=== PATIENT | male | born 1980 | race Caucasian/White ===

== ENCOUNTER 2018-12-19 22:13 | Inpatient (IN) ==
[2018-12-19] MEDS ORDERED: DIPHTHERIA/TETANUS/PERTUSSIS 0.5 ML SYR/VIAL IM ONE (22:42)
[2018-12-19] MEDS ORDERED: AMPICILLIN/SULBACTAM SOD 3,000 MG in 0.9 % SODIUM CHLORIDE 100 ML IV STA (22:42)
[2018-12-19] MEDS ORDERED: SODIUM CHLORIDE 0.9% 1000ML 1,000 ML IV SCH (22:45)
[2018-12-19] MEDS ORDERED: ONDANSETRON INJ 2 MG/ML 2 ML VIAL IV STA (22:50)
[2018-12-19] MEDS ORDERED: MoRPHine SULFATE 4 MG/ML 1 ML CARP\\VIAL IV STA (22:50)
[2018-12-19 23:04] LABS: Basophils # (auto) 0.04 K/uL (0-0.2); Basophils % (auto) 0.3 %; Eosinophils # (auto) 0.08 K/uL (0-0.5); Eosinophils % (auto) 0.6 %; Hematocrit (blood only) 42.1 % (42-52); Hemoglobin 14.6 g/dL (14.0-18.0); Immature Granulocytes # (auto) 0.05 K/uL (0.00-0.02); Immature Granulocytes % (auto) 0.4 %; Lymphocytes # (auto) 2.45 K/uL (1.2-3.4); Lymphocytes % (auto) 19.1 %; Mean Corpuscular Hgb Conc 34.7 g/dL (32-36); Mean Corpuscular Volume 90.7 fL (80-100); Mean Platelet Volume 9.9 fL (7.4-10.4); Monocytes # (auto) 0.85 K/uL (0.11-0.59); Monocytes % (auto) 6.6 %; Neutrophils # (auto) 9.36 K/uL (1.4-6.5); Platelet Count 283 K/uL (130-400); RDW Coefficient of Variation 13.9 % (11.5-14.5); RDW Standard Deviation 45.8 fL (36.4-46.3); Red Blood Count 4.64 M/uL (4.7-6.1); White Blood Count 12.83 K/uL (4.8-10.8)
[2018-12-19 23:08] LABS: iSTAT Creatinine 1.4 mg/dl (0.6-1.3); iSTAT Hemoglobin 14.3 g/dl (14.0-18.0); iSTAT Ionized Calcium 1.05 mmol/l (1.12-1.32); iSTAT Potassium 3.7 mEq/L (3.3-5.0)
[2018-12-19] MEDS ORDERED: IOVERSOL 100ml IV PRN (23:12)
[2018-12-19 23:24] LABS: Alanine Aminotransferase 34 U/L (12-78); Albumin Level 3.8 gm/dl (3.4-5.0); Aspartate Aminotransferase 25 U/L (15-37); BUN Creatinine Ratio 11.2 (10-20); Blood Urea Nitrogen 14 mg/dl (7-18); Calcium 8.3 mg/dl (8.5-10.1); Carbon Dioxide 23 mmol/L (21-32); Chloride 109 mmol/L (98-107); Creatinine Clr Calc Pharmacy 100.9 ml/min; Est GFR (African American) 81.5; Est GFR (Non-African American) 70.4; Glucose 138 mg/dl (70-99); Potassium 3.6 mmol/L (3.5-5.1); Sodium 143 mmol/L (136-145)
[2018-12-19 23:29] LABS: Alkaline Phosphatase 93 U/L (45-117); Bilirubin,Total 0.3 mg/dl (0.2-1); Total Protein 7.8 gm/dl (6.4-8.2); Troponin I < 0.015 ng/ml (0-0.045)
[2018-12-20] MEDS ORDERED: LIDOCAINE/EPINEPH/TETRACAINE 1 EA SYR EXT STA (00:19)
[2018-12-20] MEDS ORDERED: LORazepam 1 MG/2 ML VIAL IV STA ×2 (00:19→01:28)
[2018-12-20] MEDS ORDERED: MoRPHine SULFATE 10 MG/ML CARP/VIAL IV STA (03:56)
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
[2018-12-20] MEDS ORDERED: AMPICILLIN/SULBACTAM SOD 3,000 MG in 0.9 % SODIUM CHLORIDE 100 ML IV STA (05:17)
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
[2018-12-20] MEDS ORDERED: MoRPHine SULFATE 4 MG/ML 1 ML CARP\\VIAL IV STA (06:46)
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
[2018-12-20] MEDS ORDERED: NEOSTIGMINE METHYLSULFATE 5 MG/5 ML SYR ONE (08:17)
[2018-12-20] MEDS ORDERED: DEXAMETHASONE SOD INJ 4 MG/ML VIAL ONE (08:17)
[2018-12-20] MEDS ORDERED: ONDANSETRON INJ 2 MG/ML 2 ML VIAL ONE (08:17)
[2018-12-20] MEDS ORDERED: GLYCOPYRROLATE 0.2 MG/ML VIAL ONE (08:17)
[2018-12-20] MEDS ORDERED: PROPOFOL IV EMULSION 10 MG/ML 20 ML VIAL IV ONE (08:17)
[2018-12-20] MEDS ORDERED: LIDOCAINE HCL 2% 2 ML VIAL/AMP(20MG/ML) INFIL ONE (08:17)
[2018-12-20] MEDS ORDERED: fentaNYL citrate 100 MCG/2 ML VIAL ONE ×4 (08:18→11:41)
[2018-12-20] MEDS ORDERED: MIDAZOLAM HCL 1 MG/ML 2ML VIAL ONE (08:18)
[2018-12-20] MEDS ORDERED: BUPIVACAINE/EPINEPHRINE 0.5% 1:200,000 1.8 ML CARP ONE (08:27)
[2018-12-20] MEDS ORDERED: CHLORHEXIDINE GLUCONATE 0.12% 480 ML ONE (08:27)
[2018-12-20] MEDS ORDERED: BUPIVACAINE/EPINEPHRINE 0.5% MPF 1:200,000 30 ML VIAL ONE (08:43)
[2018-12-20] MEDS ORDERED: BACITRACIN OINT 15 GM TUBE ONE (09:12)
[2018-12-20] MEDS ORDERED: BACITRACIN INJ 50,000 UNIT VIAL ONE (09:13)
[2018-12-20] MEDS ORDERED: STERILE IRRIGATING OPTH SOLUTION (BSS) 15ML ONE (09:34)
[2018-12-20] MEDS ORDERED: ePHEDrine sulfate 50 MG/ML AMP IV PRN (10:55)
[2018-12-20] MEDS ORDERED: METOCLOPRAMIDE HCL INJ 5 MG/ML 2 ML VIAL IV PRN (10:55)
[2018-12-20] MEDS ORDERED: HYDROmorphone INJ 2 MG/ML SYR/VIAL IV PRN (10:55)
[2018-12-20] MEDS ORDERED: fentaNYL citrate 100 MCG/2 ML VIAL IV PRN (10:55)
[2018-12-20] MEDS ORDERED: ONDANSETRON INJ 2 MG/ML 2 ML VIAL IV PRN ×2 (10:55→12:03)
[2018-12-20] MEDS ORDERED: PROMETHAZINE HCL 12.5 MG in SODIUM CHLORIDE 0.9% 50 ML IV PRN (10:55)
[2018-12-20] MEDS ORDERED: ATROPINE SULFATE 0.1 MG/ML 10ML SYR IV PRN (10:55)
[2018-12-20] MEDS ORDERED: DEXAMETHASONE SOD INJ 4 MG/ML VIAL IV PRN (10:55)
--- NOTE | 2018-12-20 10:59 | Anesthesiology Consultation ---
Date of Service December 20, 2018 Assessment & Plan Chart Review Chart Review: Acceptable Risk for Surgery Consults Requested none History Surgery Operation Date: 12/20/18 10:30 Proposed Procedures p Suturing Facial Lacerations - Min Ovalles DMD Height/Weight Height: 6 ft 1 in Weight: 107.7 kg Allergies Allergy/AdvReac Type Severity Reaction Status Date / Time No Known Allergies Allergy Unknown ` Verified 12/19/18 23:09 Medications Home Medications Medication Instructions Recorded Confirmed Last Taken No Known Home Medications 12/19/18 12/19/18 Unknown Active Medications Generic Name Dose Route Start Last Admin Trade Name Freq PRN Reason Stop Dose Admin Ioversol 94 ml 12/19/18 23:12 12/19/18 23:13 Optiray 320 100ml IV 12/23/18 23:11 94 ml ONCE PRN Administration Interaction Checking NPO Date Last Intake of Fluids: 12/19/18 Time Last Intake of Fluids: 20:00 Date Last Intake of Solids: 12/19/18 Time Last Intake of Solids: 20:00 Past Medical History Medical History No acute medical problems Social History Smoking Status: Current some day smoker Physical Exam Vital Signs Last Vital Signs Temp 37 C 12/19/18 22:21 Pulse 66 12/20/18 07:45 Resp 16 12/20/18 07:45 BP 131/79 12/20/18 07:45 Pulse Ox 94 12/20/18 07:45 Testing Laboratory Results 12/19/18 22:51 12/19/18 22:51 Blood Type A Positive 12/19/18 22:51 Antibody Screen NEGATIVE 12/19/18 22:51 12/19/18 22:55 POC Glucose (other) 144 H
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
[2018-12-20] MEDS ORDERED: LORazepam 1 MG/2 ML VIAL IV PRN (12:03)
[2018-12-20] MEDS ORDERED: ACETAMINOPHEN/HYDROCODONE ELIX 15 ML/CUP UDP PO PRN ×2 (12:03)
[2018-12-20] MEDS ORDERED: ICU PROTOCOL FOR HYPERGLYCEMIA PRN (12:10)
--- NOTE | 2018-12-20 12:49 | Anesthesiology Progress Note ---
Date of Service December 20, 2018 Anesthesia Post Procedure Vital Signs Vital Signs: Temp Pulse Pulse Resp BP BP Pulse Ox 12/20/18 12:46 79 18 99 12/20/18 12:45 78 20 142/89 H 99 12/20/18 12:41 91 H 22 99 12/20/18 12:40 78 16 149/93 H 100 12/20/18 12:36 79 20 98 12/20/18 12:35 82 20 132/87 98 12/20/18 12:31 86 20 98 12/20/18 12:30 87 20 146/89 H 99 12/20/18 12:26 90 20 99 12/20/18 12:25 104 H 19 134/109 H 98 12/20/18 12:21 88 23 100 12/20/18 12:20 145/95 H 100 12/20/18 12:16 20 100 12/20/18 12:15 15 148/80 H 100 12/20/18 12:12 16 98 12/20/18 12:11 36.9 C 85 16 144/86 H 144/86 H 98 12/20/18 07:45 66 16 131/79 94 12/20/18 06:57 100 H 16 126/81 96 12/20/18 05:30 100 H 14 148/90 H 95 12/20/18 04:36 107 H 16 148/90 H 94 12/20/18 03:03 105 H 16 98 12/20/18 02:10 112 H 21 93 12/20/18 02:00 110 H 20 129/77 93 12/20/18 01:50 112 H 17 93 12/20/18 01:40 108 H 19 93 12/20/18 01:30 107 H 16 98 12/20/18 01:20 103 H 20 96 12/20/18 01:10 110 H 22 95 12/20/18 01:00 116 H 19 142/78 H 94 12/20/18 00:50 113 H 19 94 12/20/18 00:40 103 H 17 95 12/20/18 00:30 93 H 18 97 12/20/18 00:20 95 H 20 95 12/20/18 00:10 86 23 96 12/20/18 00:00 135/88 95 12/19/18 23:50 100 H 21 96 12/19/18 23:40 98 H 19 96 12/19/18 23:38 101 H 20 158/102 H 96 12/19/18 23:30 104 H 18 92 12/19/18 23:20 102 H 21 95 12/19/18 23:16 104 H 22 95 12/19/18 22:58 96 12/19/18 22:55 99 H 21 96 12/19/18 22:21 37 C 101 H 20 142/88 H 97 Pain Intensity Face: Pain Intensity: 0 Transfer of Care Handoff Completed per policy Notes Mental Status: alert / awake / arousable and participated in evaluation Patient Amnestic to Procedure: Yes Nausea / Vomiting: adequately controlled Pain: adequately controlled Airway Patency, RR, SpO2: stable & adequate BP & HR: stable & adequate Hydration State: stable & adequate Anesthetic Complications: no major complications apparent
[2018-12-20] MEDS: CEFAZOLIN 2000MG 2,000 MG/15 ML SYR IV SCH ×2 (13:55→21:39)
[2018-12-20] MEDS: KETOROLAC 30 MG/ML VIAL IV SCH ×2 (13:55→19:40)
[2018-12-20] MEDS: D5W AND 1/2NSS + 20MEQ KCL 20 MEQ/1,000 ML BAG IV SCH ×2 (13:55→21:38)
[2018-12-20] MEDS: OXYMETAZOLINE 0.05% 30 ML BTL PRN ×2 (14:03→18:29)
[2018-12-20] MEDS: DEXAMETHASONE SOD PHOSPHATE 6 MG in SYRINGE 0 ML IV SCH ×2 (14:51→19:39)
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
[2018-12-20] MEDS ORDERED: SODIUM CHLORIDE 0.65% NA SOLN 45 ML (OCEAN) ONE (18:26)
[2018-12-20] MEDS: MoRPHine SULFATE 2 MG/ML CARP IV PRN (20:37)
[2018-12-21] MEDS: KETOROLAC 30 MG/ML VIAL IV SCH ×3 (01:53→13:04)
[2018-12-21] MEDS: DEXAMETHASONE SOD PHOSPHATE 6 MG in SYRINGE 0 ML IV SCH ×3 (01:54→13:03)
[2018-12-21] MEDS: MoRPHine SULFATE 2 MG/ML CARP IV PRN ×2 (02:05→10:32)
[2018-12-21] MEDS: D5W AND 1/2NSS + 20MEQ KCL 20 MEQ/1,000 ML BAG IV SCH (05:45)
[2018-12-21] MEDS: CEFAZOLIN 2000MG 2,000 MG/15 ML SYR IV SCH ×2 (05:45→13:03)
[2018-12-21 06:19] LABS: Appearance Urine Clear (Clear); Bilirubin Urine Negative (Negative); Blood Urine Negative (Negative); Color Urine Yellow; Glucose Urine UA Negative (Negative); Ketones Urine Trace (Negative); Leukocyte Esterase Urine Negative (Negative); Nitrite Urine Negative (Negative); Protein Urine Negative (Negative); Specific Gravity Urine 1.032 (1.000-1.030); Urobilinogen Urine Negative (Negative); pH Urine 6.5 (4.5-7.5)
[2018-12-21 06:38] LABS: Amphetamines+Metham, Urine Neg (Neg); Barbiturates, Urine Neg (Neg); Benzodiazepine, Urine Pos (Neg); Cocaine, Urine Neg (Neg); MDMA (Ecstacy), Urine Neg (Neg); Methadone, Urine Neg (Neg); Opiate, Urine Pos (Neg); Phencyclidine, Urine Neg (Neg)
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
--- NOTE | 2018-12-21 10:36 | Anesthesiology Progress Note ---
Date of Service December 21, 2018 Anesthesia Post Procedure Vital Signs Vital Signs: Temp Pulse Pulse Resp BP BP Pulse Ox 12/21/18 10:01 75 13 94 12/21/18 10:00 78 16 135/72 95 12/21/18 09:30 69 16 94 12/21/18 09:00 82 19 121/72 96 12/21/18 08:30 61 13 95 12/21/18 08:01 63 1 L 96 12/21/18 08:00 36.5 C 80 17 155/98 H 96 12/21/18 07:30 63 21 95 12/21/18 07:01 90 23 98 12/21/18 07:00 69 16 139/79 94 12/21/18 06:30 63 27 H 95 12/21/18 06:15 37.0 C 83 21 96 12/21/18 05:00 62 16 125/69 95 12/21/18 04:00 57 L 14 109/72 95 12/21/18 03:00 62 16 106/70 95 12/21/18 02:00 36.6 C 71 15 133/78 96 12/21/18 01:00 66 12 113/66 96 12/21/18 00:00 66 16 126/76 94 12/20/18 23:00 69 14 109/69 95 12/20/18 22:00 70 16 131/71 96 12/20/18 21:01 77 18 95 12/20/18 21:00 74 17 131/76 95 12/20/18 20:06 81 12/20/18 20:00 37.0 C 82 17 139/90 96 12/20/18 19:00 85 17 97 12/20/18 18:00 77 15 124/74 95 12/20/18 17:00 87 15 132/80 96 12/20/18 16:00 85 23 113/79 94 12/20/18 15:00 80 14 130/78 94 12/20/18 14:30 102 H 17 135/98 98 12/20/18 14:00 95 H 16 148/88 H 96 12/20/18 13:30 84 15 150/97 H 100 12/20/18 13:14 116 H 17 132/91 98 12/20/18 13:10 95 H 16 149/87 H 99 12/20/18 13:05 87 16 137/88 99 12/20/18 13:00 93 H 23 133/89 99 12/20/18 12:55 80 30 H 154/86 H 99 12/20/18 12:50 36.9 C 93 H 24 144/97 H 98 12/20/18 12:46 79 18 99 12/20/18 12:45 78 20 142/89 H 99 12/20/18 12:41 91 H 22 99 12/20/18 12:40 78 16 149/93 H 100 12/20/18 12:36 79 20 98 12/20/18 12:35 82 20 132/87 98 12/20/18 12:31 86 20 98 12/20/18 12:30 87 20 146/89 H 99 12/20/18 12:26 90 20 99 12/20/18 12:25 104 H 19 134/109 H 98 12/20/18 12:21 88 23 100 12/20/18 12:20 145/95 H 100 12/20/18 12:16 20 100 12/20/18 12:15 15 148/80 H 100 12/20/18 12:12 16 98 12/20/18 12:11 39.9 C H 94 H 16 144/86 H 144/86 H 98 Pain Intensity Face: Pain Intensity: 5 Notes Mental Status: alert / awake / arousable Patient Amnestic to Procedure: Yes Nausea / Vomiting: adequately controlled Pain: improving with treatment Airway Patency, RR, SpO2: stable & adequate BP & HR: stable & adequate Hydration State: stable & adequate Anesthetic Complications: no major complications apparent
[2018-12-21] MEDS ORDERED: SODIUM CHLORIDE 0.65% NA SOLN 45 ML (OCEAN) ONE (13:11)
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
[2018-12-23 12:05] LABS: 7-Aminoclonaz, Confirm NEGATIVE NG/ML (CUTOFF=25); Codeine Urine NEGATIVE NG/ML (CUTOFF=50); Hydro-Alp Ur, GC/MS NEGATIVE NG/ML (CUTOFF=25); Hydrocodone Urine NEGATIVE NG/ML (CUTOFF=50); Hydromor Urine NEGATIVE NG/ML (CUTOFF=50); Hydroxyethylflurazepam, Conf NEGATIVE NG/ML (CUTOFF=50); Hydroxytriazolam NEGATIVE NG/ML (CUTOFF=50); Lorazepam, Ur GC/MS 979 NG/ML (CUTOFF=50); Marijuana Quant, GCMS Urine 72 NG/ML (CUTOFF=5); Morphine Urine 4210 NG/ML (CUTOFF=50); Nordiazepam, Confirm NEGATIVE NG/ML (CUTOFF=50); Norhydrocodone Conf Ur NEGATIVE NG/ML (CUTOFF=50); Noroxycodone Urine NEGATIVE NG/ML (CUTOFF=50); Oxazepam Ur, GC/MS NEGATIVE NG/ML (CUTOFF=50); Oxycodone Urine NEGATIVE NG/ML (CUTOFF=50); Oxymorph Urine NEGATIVE NG/ML (CUTOFF=50); Temazepam, Confirm NEGATIVE NG/ML (CUTOFF=50)
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
== END 2018-12-21 13:54 | disposition home or self-care (01) | DRG 605 ==
LOC: ED 22:13 → OR 12-20 08:30 → 1E 12-20 12:11
DX: S01.502A Unspecified open wound of oral cavity, initial encounter; S09.90XA Unspecified injury of head, initial encounter; S01.81XA Laceration without foreign body of other part of head, initial encounter; V29.9XXA Motorcycle rider (driver) (passenger) injured in unspecified traffic accident, initial encounter; F17.210 Nicotine dependence, cigarettes, uncomplicated